=== PATIENT | female | born 1955 | race Caucasian/White ===

== ENCOUNTER 2018-01-23 18:12 | Emergency (ER) | payer MEDICARE ==
[~2018-01-23] VITALS: Ht 162.6 cm; Wt 81.7 kg
[~2018-01-23 18:12] MED LIST: ALBU90OI INH; AMLO5 PO; CEPH500 PO; CLON.1; CLON.1 PO; ERGO50000 PO; FOLI1 PO; GABA100 PO; HYDACE5 PO; IRON; NISO10ER PO; NITR.4TPA TOP; OLME20 PO; OLME20-12. PO; OXYACE5T PO; PENVK500 PO; POTCHL10ER PO; PROM12.5S PR; PROM25S PR; SERT100 PO; SIMV40 PO; SPIHYD; SYMBICORT INHALER; TRAM50 PO
[2018-01-23 18:56] LABS: BASOPHILS ABSOLUTE AUTO 0.01 K/mm3 (0.00-0.23); BASOPHILS PERCENT AUTO 0 % (0-2); EOSINOPHILS ABSOLUTE AUTO 0.06 K/mm3 (0.00-0.68); EOSINOPHILS PERCENT AUTO 1 % (0-6); Hematocrit 34.1 % (33.0-51.0); Hemoglobin 11.4 g/dL (11.5-16.0); IMMATURE GRAN ABSOLUTE AUTO 0.01 K/mm3 (0.00-0.10); IMMATURE GRAN PERCENT AUTO 0 % (0-1); LYMPHOCYTES ABSOLUTE AUTO 2.11 K/mm3 (0.84-5.20); LYMPHOCYTES PERCENT AUTO 37 % (21-46); MONOCYTES ABSOLUTE AUTO 0.35 K/mm3 (0.16-1.47); MONOCYTES PERCENT AUTO 6 % (4-13); Mean Corpuscular HGB 30.6 pg (26.0-34.0); Mean Corpuscular HGB Conc 33.4 g/dL (31.5-36.5); Mean Corpuscular Volume 92 fL (80-100); Mean Platelet Volume 10.6 fL (9.1-12.4); NEUTROPHILS ABSOLUTE AUTO 3.13 K/mm3 (1.96-9.15); NEUTROPHILS PERCENT AUTO 55 % (41-73); Platelet Count 197 K/mm3 (150-400); RDW Coefficient Variation 12.5 % (11.7-14.2); RDW Standard Deviation 41.5 fL (35.1-46.3); Red Blood Cell Count 3.72 M/mm3 (3.80-5.20); White Blood Cell Count 5.67 K/mm3 (4.00-11.30)
[2018-01-23 19:10] LABS: Alanine Aminotransfer (ALT/SGP 18 U/L (12-78); Albumin, Blood 3.6 g/dL (3.4-5.0); Albumin/Globulin Ratio 0.9 (0.8-1.8); Alk Phos 117 U/L (50-136); Anion Gap 6 mmol/L (6-16); Aspartate Aminotrans (AST/SGOT 21 U/L (12-37); Bilirubin, Total 0.2 mg/dL (0.1-1.0); Blood Urea Nitrogen 25 mg/dL (8-24); CO2, Blood 31 mmol/L (21-32); Calcium, Blood 8.7 mg/dL (8.5-10.1); Chloride, Blood 104 mmol/L (98-108); Creatinine, Blood 1.47 mg/dL (0.40-1.00); Globulin, Blood 4.1 g/dL (2.2-4.0); Glomerular Filtration Rate 38 (60-); Glucose, Blood 133 mg/dL (70-99); Potassium, Blood 3.6 mmol/L (3.5-5.5); Sodium, Blood 141 mmol/L (136-145); Total Protein, Blood 7.7 g/dL (6.4-8.2); Troponin I <0.015 ng/mL (0.000-0.040)
== END 2018-01-23 21:14 | disposition home or self-care (01) ==
LOC: ER 18:12
PROVIDERS: Emergency Medicine
DX: R42 Dizziness and giddiness (principal); R53.1 Weakness; I12.9 Hypertensive chronic kidney disease with stage 1 through stage 4 chronic kidney disease, or unspecified chronic kidney disease; N18.9 Chronic kidney disease, unspecified; F32.9 Major depressive disorder, single episode, unspecified; Z88.5 Allergy status to narcotic agent; Z88.6 Allergy status to analgesic agent; Z88.8 Allergy status to other drugs, medicaments and biological substances; Z79.899 Other long term (current) drug therapy
CPT/HCPCS: 36415; 71046; 80053; 83880; 84484; 85025; 93005; 93010; 99284-25

== ENCOUNTER → 2019-08-03 | Outpatient (CLI) | payer MEDICARE | END | disposition home or self-care (01) | LOC: LAB 11:20 → LAB SHORT 11:20 | DX: N18.2 Chronic kidney disease, stage 2 (mild) (principal); D63.1 Anemia in chronic kidney disease; R94.5 Abnormal results of liver function studies | CPT/HCPCS: 86335 ==

== ENCOUNTER 2020-12-01 10:10 | Inpatient (IN) | payer MEDICARE ==
[~2020-12-01] VITALS: Ht 162.6 cm; Wt 86.2 kg
[2020-12-01 10:33] LABS: BASOPHILS ABSOLUTE AUTO 0.03 K/mm3 (0.00-0.23); BASOPHILS PERCENT AUTO 0 % (0-2); EOSINOPHILS ABSOLUTE AUTO 0.11 K/mm3 (0.00-0.68); EOSINOPHILS PERCENT AUTO 1 % (0-6); Hematocrit 32.4 % (33.0-51.0); Hemoglobin 10.6 g/dL (11.5-16.0); IMMATURE GRAN ABSOLUTE AUTO 0.11 K/mm3 (0.00-0.10); IMMATURE GRAN PERCENT AUTO 1 % (0-1); LYMPHOCYTES ABSOLUTE AUTO 1.47 K/mm3 (0.84-5.20); LYMPHOCYTES PERCENT AUTO 17 % (21-46); MONOCYTES ABSOLUTE AUTO 0.43 K/mm3 (0.16-1.47); MONOCYTES PERCENT AUTO 5 % (4-13); Mean Corpuscular HGB 30.3 pg (26.0-34.0); Mean Corpuscular HGB Conc 32.7 g/dL (31.5-36.5); Mean Corpuscular Volume 93 fL (80-100); Mean Platelet Volume 10.1 fL (9.1-12.4); NEUTROPHILS PERCENT AUTO 75 % (41-73); Platelet Count 184 K/mm3 (150-400); RDW Coefficient Variation 13.2 % (11.7-14.2); RDW Standard Deviation 44.9 fL (35.1-46.3); White Blood Cell Count 8.75 K/mm3 (4.00-11.30)
[2020-12-01 10:54] LABS: Alanine Aminotransfer (ALT/SGP 31 U/L (12-78); Albumin, Blood 3.3 g/dL (3.4-5.0); Albumin/Globulin Ratio 0.7 (0.8-1.8); Alk Phos 222 U/L (50-136); Anion Gap 1 mmol/L (6-16); Aspartate Aminotrans (AST/SGOT 49 U/L (12-37); Beta HCG, Quantitative, Serum 1 mIU/mL (0-3); Bilirubin, Total 0.2 mg/dL (0.1-1.0); Blood Urea Nitrogen 50 mg/dL (8-24); Bun/Creatinine Ratio 32.9 (12.0-20.0); CO2, Blood 33 mmol/L (21-32); Chloride, Blood 105 mmol/L (98-108); Creatinine, Blood 1.52 mg/dL (0.40-1.00); Ethanol (Alcohol), Blood, Med <3 mg/dL; Globulin, Blood 4.5 g/dL (2.2-4.0); Glomerular Filtration Rate 36 (60-); Glucose, Blood 127 mg/dL (70-99); Potassium, Blood 4.9 mmol/L (3.5-5.5); Sodium, Blood 139 mmol/L (136-145); Total Protein, Blood 7.8 g/dL (6.4-8.2)
[2020-12-01 11:01] LABS: International Normalized Ratio 0.95; Prothrombin Time Results 10.3 Sec (9.7-11.5)
[2020-12-01 11:16] LABS: Source, Urine Clean Catch
[2020-12-01 11:20] LABS: Appearance, Urine Clear (Clear); Bilirubin, Urine Neg (Neg); Blood, Urine 4+ (Neg); Color, Urine Yellow (P-Yellow); Glucose Qualitative, Urine Neg (Neg); Ketones, Urine Neg (Neg); Leukocyte Esterase, Urine 1+ (Neg); Nitrite, Urine Neg (Neg); Protein, Urine 2+ (Neg); Urobilinogen, Urine NORM (Normal)
[2020-12-01 11:46] LABS: Bacteria Few /hpf; Squamous Epithelial Cells Rare /hpf (Few)
[2020-12-01] MEDS ORDERED: CYCL10 PO (14:35)
[2020-12-01] MEDS ORDERED: FLUT1DIS8 INH (14:36)
[2020-12-01] MEDS ORDERED: OXYC10TA19 PO (14:39)
[2020-12-01 14:50] LABS: U Amphetamine Screen Not Detected; U Barbituate Screen Not Detected; U Benzodiazapine Screen Not Detected; U Buprenorphine Screen Not Detected; U Cannabinoids Screen DETECTED; U Cocaine Screen Not Detected; U Methadone Screen Not Detected; U Methamphetamine Screen Not Detected; U Opiates Screen Not Detected; U Oxycodone Screen DETECTED; U Phencyclidine Screen Not Detected; U Propoxyphene Screen Not Detected
--- NOTE | 2020-12-01 17:41 | NUR ---
Shift Summary Received report from [facility]-RN. Patient arrived to unit via gurney at approx. 1430, slide transfer to bed. AOx4, pleasant and cooperative with care. Medicated for pain per EMAR with some relief. Painful with repositioning and requiring 2p max for comfort and safety. Cast to L arm/wrist. TQ2 as tolerated. Per report received from [facility], Dr. Mack has been notified of the ortho consult. Muniz placed in ER, patent and draining clear yellow urine. Resting comfortably in bed. WCTM.
--- NOTE | 2020-12-02 04:20 | NUR ---
SHIFT SUMMARY ADMITTED FOR MULTIPLE FRACTURES AFTER A FALL FROM A LADDER. FULL CODE. DR VILLARREAL IS ORTHO CONSULT. SHE IS BEDREST FOR NOW. NS INFUSING @ 100 ML/HR. 1 LPM O2 VIA NC, SHE USES 3 1/2 LPM O2 AT NIGHT WHEN SHE IS HOME. DOMÍNGUEZ IN PLACE DUE TO PELVIC FRACTURES. I DID MEDICATE FOR PAIN 2 X'S THIS SHIFT. 2 G LOW NA+ DIET. SHE IS A&O X4.
[2020-12-02 04:47] LABS: BASOPHILS ABSOLUTE AUTO 0.01 K/mm3 (0.00-0.23); BASOPHILS PERCENT AUTO 0 % (0-2); EOSINOPHILS ABSOLUTE AUTO 0.04 K/mm3 (0.00-0.68); EOSINOPHILS PERCENT AUTO 1 % (0-6); Hematocrit 29.5 % (33.0-51.0); Hemoglobin 9.8 g/dL (11.5-16.0); IMMATURE GRAN ABSOLUTE AUTO 0.02 K/mm3 (0.00-0.10); IMMATURE GRAN PERCENT AUTO 0 % (0-1); LYMPHOCYTES PERCENT AUTO 8 % (21-46); MONOCYTES ABSOLUTE AUTO 0.15 K/mm3 (0.16-1.47); MONOCYTES PERCENT AUTO 2 % (4-13); Mean Corpuscular HGB 30.1 pg (26.0-34.0); Mean Corpuscular HGB Conc 33.2 g/dL (31.5-36.5); Mean Corpuscular Volume 91 fL (80-100); Mean Platelet Volume 10.2 fL (9.1-12.4); NEUTROPHILS ABSOLUTE AUTO 5.66 K/mm3 (1.96-9.15); NEUTROPHILS PERCENT AUTO 89 % (41-73); Platelet Count 143 K/mm3 (150-400); RDW Coefficient Variation 13.2 % (11.7-14.2); RDW Standard Deviation 43.3 fL (35.1-46.3); Red Blood Cell Count 3.26 M/mm3 (3.80-5.20); White Blood Cell Count 6.38 K/mm3 (4.00-11.30)
[2020-12-02 05:28] LABS: Albumin, Blood 2.8 g/dL (3.4-5.0); Albumin/Globulin Ratio 0.7 (0.8-1.8); Bilirubin, Total 0.5 mg/dL (0.1-1.0); Bun/Creatinine Ratio 26.4 (12.0-20.0); Calcium, Blood 8.1 mg/dL (8.5-10.1); Creatinine, Blood 1.06 mg/dL (0.40-1.00); Globulin, Blood 4.1 g/dL (2.2-4.0); Magnesium, Blood 1.6 mg/dL (1.6-2.4); Potassium, Blood 3.8 mmol/L (3.5-5.5); Total Protein, Blood 6.9 g/dL (6.4-8.2)
--- NOTE | 2020-12-02 15:39 | NUR ---
PATIENT HAS BEEN ENCOUAGED TO DEEP BREATH AND COUGH. A BED BATH WAS ATTEMPTED BUT THE PATIENT WAS UNABLE TO LOG ROLL TO FINISH THE BEDBATH. REPOSITIONING WITH PILLOWS. SCDS IN PLACE. DR. VILLARREAL WAS CONSULTED YESTERDAY IN THE ER. HE DID NOT COME TO SEE THE PATIENT UNTIL HE WAS CONSULTED AGAIN UP ON 3RD FLOOR. THE PATIENT WAS NOT NPO TODAY AND THEREFORE WAS UNABLE TO HAVE A PRODCEDURE DONE. THE PATIENT HAS NPO ORDERS. DR. VILLARREAL SAID THAT THE APPLIED BIOLOGY PROFESSOR ORTHOPEDIC SURGEON WILL PREFORM THE PROCEDURE TOMMOROW. THE PATIENT C/O BEING HOT AND SWEATY, HER ORAL TEMPERATURE SHOWS 98.7 DEGREES FAHRENHEIT. VSS.
--- NOTE | 2020-12-02 17:13 | NUR ---
PATIENT IS ALERT AND ORIENTED. SHE IS IN 9/10 PAIN, TREATED PER EMAR. PATIENT IS DYSPNEIC, A CHEST X-RAY IS BEING COMPLETED AT THIS TIME. A DOMÍNGUEZ IS IN PLACE. ON 2L O2 VIA NC. NS AT 100/HR. SPLINT IS IN PLACE ON LEFT FOREARM. PATIENT IS BEDREST. PATIENT IS NPO AT THIS TIME IN PREPARATION FOR THE PROCEDURE. HER BP IS 179/91, HYDRALAZINE HAS BEEN ORDERED BY DR. DANG. WILL CONTINUE TO MONITOR
[2020-12-03 04:54] LABS: Hematocrit 27.1 % (33.0-51.0); Hemoglobin 9.2 g/dL (11.5-16.0); Mean Corpuscular HGB 29.9 pg (26.0-34.0); Mean Corpuscular HGB Conc 33.9 g/dL (31.5-36.5); Mean Corpuscular Volume 88 fL (80-100); Mean Platelet Volume 10.8 fL (9.1-12.4); Platelet Count 104 K/mm3 (150-400); RDW Standard Deviation 41.1 fL (35.1-46.3); Red Blood Cell Count 3.08 M/mm3 (3.80-5.20); White Blood Cell Count 6.04 K/mm3 (4.00-11.30)
[2020-12-03 05:27] LABS: Alanine Aminotransfer (ALT/SGP 25 U/L (12-78); Albumin, Blood 2.4 g/dL (3.4-5.0); Albumin/Globulin Ratio 0.6 (0.8-1.8); Alk Phos 101 U/L (50-136); Anion Gap 6 mmol/L (6-16); Aspartate Aminotrans (AST/SGOT 48 U/L (12-37); Bilirubin, Total 0.6 mg/dL (0.1-1.0); Blood Urea Nitrogen 17 mg/dL (8-24); Bun/Creatinine Ratio 21.7 (12.0-20.0); CO2, Blood 27 mmol/L (21-32); Calcium, Blood 8.1 mg/dL (8.5-10.1); Chloride, Blood 99 mmol/L (98-108); Creatinine, Blood 0.78 mg/dL (0.40-1.00); Ferritin, Serum 370 ng/mL (8-252); Globulin, Blood 4.2 g/dL (2.2-4.0); Glomerular Filtration Rate >60 (60-); Glucose, Blood 118 mg/dL (70-99); Iron Serum 17 ug/dL (50-170); Percent Saturation 6.2 % (15.0-50.0); Potassium, Blood 3.4 mmol/L (3.5-5.5); Sodium, Blood 132 mmol/L (136-145); Total Iron Binding Capacity 272 ug/dL (250-450); Total Protein, Blood 6.6 g/dL (6.4-8.2)
--- NOTE | 2020-12-03 05:43 | NUR ---
HELIOTHERAPIST SUMMARY PT AAOX4, PLEASANT AND COOPERATIVE. BEDREST DUE TO PELVIC AND ARM FX'S. DOMÍNGUEZ CATH IN PLACE DUE TO PAIN WITH MOVEMENT. MEDICATING PT WITH DILAUDID 0.5 MG IV X3 TONIGHT. PT REPORTS THAT PAIN LEVEL GOES FROM A 8-9/10 TO A 6/10 WHICH SHE REPORTS IS TOLERABLE FOR HER. PT HAS BEEN ABLE TO SLEEP A GOOD PORTION OF THE NIGHT. PT HAS BEEN NPO IN PREP FOR ORTHO CONSULT WITH POSSIBLE PROCEDURE LATER TODAY. WILL CONTINUE TO MONITOR.
[2020-12-03 14:07] LABS: Stool Occult Blood Guaiac 1 Neg (Neg)
--- NOTE | 2020-12-03 20:51 | NUR ---
PT RETURNED TO ROOM FROM PACU S/P LEFT WRIST AND LEFT HIP REPAIR. PT IS A/O PAIN IS RATING 9/10 MOSTLY IN WRIST. PT IS DRINKING JUICE EATING JELLO. MEDICATED FOR PAIN. DRESSING TO LEFT HIP WITH MOD DRAINAGE, BUT INTACT. LEFT WRIST IN SPLINT. ABLE TO WIGGLE FINGERS AND TOES BUT STATES SOME NUMBESS TO LEFT FINGERS. DOMÍNGUEZ IS DRAINING WELL. IVF INFUSING. VSS AND ON 3L NC, WILL TITRATE NEEDED.
--- NOTE | 2020-12-04 04:34 | NUR ---
SHIFT SUMMARY POD#1 LEFT HIP PINNING. AAOX4. DISCOMFORT DECREASED WITH 0.5MG IV DILAUDID X2 THIS SHIFT. NO NAUSEA/EMESIS. DRESSING TO LEFT HIP QUARTER SIZE RED DRAINAGE NOTED UPON ARRIVAL TO UNIT, NO INCREASE THIS SHIFT. PPP, DENIES N/T ALL EXTREMITIES, MOVES ALL TOES WELL. LUE IN SPLINT C/D/I. PT VERY PAINFUL WITH MINIMAL MOVEMENT. DOMÍNGUEZ SECURE/DRAINING YELLOW URINE. RESTING WELL THIS AM. IVF + POST OP ABX PER ORDERS. PT CURRENTLY RESTING WELL IN BED WITH CALL LIGHT IN REACH.
[2020-12-04 05:26] LABS: Hematocrit 23.8 % (33.0-51.0); Mean Corpuscular HGB Conc 33.6 g/dL (31.5-36.5); Mean Corpuscular Volume 89 fL (80-100); Mean Platelet Volume 10.9 fL (9.1-12.4); Platelet Count 99 K/mm3 (150-400); RDW Standard Deviation 42.5 fL (35.1-46.3); Red Blood Cell Count 2.67 M/mm3 (3.80-5.20); White Blood Cell Count 3.54 K/mm3 (4.00-11.30)
[2020-12-04 05:50] LABS: Anion Gap 4 mmol/L (6-16); Blood Urea Nitrogen 18 mg/dL (8-24); Bun/Creatinine Ratio 25.2 (12.0-20.0); CO2, Blood 30 mmol/L (21-32); Chloride, Blood 102 mmol/L (98-108); Creatinine, Blood 0.72 mg/dL (0.40-1.00); Glomerular Filtration Rate >60 (60-); Glucose, Blood 154 mg/dL (70-99); Potassium, Blood 3.8 mmol/L (3.5-5.5); Sodium, Blood 136 mmol/L (136-145)
--- NOTE | 2020-12-04 10:20 | NUR ---
12/04/20 1020 Brie Prasad VERIFICATION: EDIT CHART.
--- NOTE | 2020-12-04 18:36 | NUR ---
SHIFT SUMMARY PT ALERT AND ORIENTED THROUGHOUT SHIFT. TOLERATING REGULAR DIET AND FLUIDS. LEFT HIP DRESSING CHANGED X2. STOOD AT EDGE OF BED WITH PHYSICAL THERAPY. LEFT ARM SPLINT IN PLACE. MEDICATED FOR PAIN NEEDED. ARM AND HIP ICED. ARM ELEVATED ON PILLOW. WIGGLES FINGERS AND TOES ON LEFT SIDE.
--- NOTE | 2020-12-05 04:39 | NUR ---
SHIFT SUMMARY: COLUMBA IS A&OX4. VSS, NO ACUTE EVENTS OVERNIGHT. SHE REPORTS MINIMAL PAIN RELIEF WITH THE ORAL PAIN MEDICATION D/T TAKING 40 MG OF OXYCODONE AT HOME Q AM. SLING TO GEOFF, DRESSING TO L HIP C/D&I. SCDs IN PLACE. SHE IS TOLERATING PO INTAKE WELL, DOMÍNGUEZ PATENT. SHE IS LYING IN BED WITH THE CALL LIGHT IN REACH. WILL REPORT TO DAY SHIFT RN.
[2020-12-05 05:12] LABS: Hematocrit 24.2 % (33.0-51.0); Hemoglobin 7.8 g/dL (11.5-16.0); Mean Corpuscular HGB 29.5 pg (26.0-34.0); Mean Corpuscular HGB Conc 32.2 g/dL (31.5-36.5); Mean Corpuscular Volume 92 fL (80-100); Mean Platelet Volume 10.7 fL (9.1-12.4); Platelet Count 134 K/mm3 (150-400); RDW Coefficient Variation 13.4 % (11.7-14.2); RDW Standard Deviation 44.8 fL (35.1-46.3); Red Blood Cell Count 2.64 M/mm3 (3.80-5.20); White Blood Cell Count 3.63 K/mm3 (4.00-11.30)
[2020-12-05 05:28] LABS: Anion Gap 3 mmol/L (6-16); Blood Urea Nitrogen 26 mg/dL (8-24); Bun/Creatinine Ratio 28.7 (12.0-20.0); CO2, Blood 31 mmol/L (21-32); Calcium, Blood 8.2 mg/dL (8.5-10.1); Chloride, Blood 104 mmol/L (98-108); Creatinine, Blood 0.91 mg/dL (0.40-1.00); Glomerular Filtration Rate >60 (60-); Glucose, Blood 125 mg/dL (70-99); Potassium, Blood 3.4 mmol/L (3.5-5.5); Sodium, Blood 138 mmol/L (136-145)
--- NOTE | 2020-12-05 06:11 | NUR ---
HEMOGLOBIN 7.8 THIS AM, DOWN FROM 8.0, WAS 10.6 ON ADMISSION. OFFICE CORRESPONDENT PHYSICIAN NOTIFIED, NO NEW ORDERS AT THIS TIME.
--- NOTE | 2020-12-05 15:45 | NUR ---
SHIFT SUMMARY: POD 2 LEFT HIP PINNING PATIENT IS ALERT AND ORIENTED X4. VS ARE WNL AND IS ON 2L NC. SHE WEARS 3L OXYGEN NC DURING THE NIGHT AT BASELINE. PAIN IS MANAGED WITH 2 OXY THIS SHIFT. GAUZE AND TAPE ARE IN PLACE ON THE LEFT HIP AND IS C/D/I. SHE ALSO HAS AN DAVID WRAP SPLINT ON THE LEFT ARM THAT IS C/D/I. SHE IS ABLE TO WIGGLE FINGERS AND TOES. DENIES NUMBNESS OR TINGLING. SHE IS A 2 PERSON ASSIST WITH FWW AND GAIT BELT. PATIENT WAS ABLE TO SIT IN A CHAIR FOR A WHILE. SHE IS TOLERATING PO INTAKE AND IS VOIDING. SHE IS CURRENTLY BACK IN BED WATCHING TV. THE PLAN IS TO CONTINUE TO WORK WITH PT/OT UNTIL THERE IS A BED AVAILABLE AT A SNF.
--- NOTE | 2020-12-05 19:04 | NUR ---
RECEIVED REPORT AND ASSUMED CARE OF PT. SHE IS LYING IN BED WITH HER LEFT LEG AND LEFT ARM ELEVTAED ON PILLOWS, AWAKE, ALERT AND ORIENTED. SHE DENIES ANY NEEDS AT THIS TIME. GUSTAVO.
[2020-12-06 04:43] LABS: Hematocrit 23.9 % (33.0-51.0); Mean Corpuscular HGB 30.5 pg (26.0-34.0); Mean Corpuscular HGB Conc 33.5 g/dL (31.5-36.5); Mean Corpuscular Volume 91 fL (80-100); Mean Platelet Volume 10.3 fL (9.1-12.4); Platelet Count 152 K/mm3 (150-400); RDW Coefficient Variation 13.5 % (11.7-14.2); RDW Standard Deviation 44.7 fL (35.1-46.3); Red Blood Cell Count 2.62 M/mm3 (3.80-5.20); White Blood Cell Count 3.84 K/mm3 (4.00-11.30)
[2020-12-06 05:03] LABS: Anion Gap 2 mmol/L (6-16); Blood Urea Nitrogen 21 mg/dL (8-24); CO2, Blood 32 mmol/L (21-32); Calcium, Blood 8.3 mg/dL (8.5-10.1); Chloride, Blood 104 mmol/L (98-108); Creatinine, Blood 0.78 mg/dL (0.40-1.00); Glomerular Filtration Rate >60 (60-); Glucose, Blood 108 mg/dL (70-99); Potassium, Blood 4.3 mmol/L (3.5-5.5); Sodium, Blood 138 mmol/L (136-145)
--- NOTE | 2020-12-06 05:10 | NUR ---
SHIFT SUMMARY: COLUMBA IS A&OX4. VSS, NO ACUTE EVENTS OVERNIGHT. SHE REPORTS MINIMAL PAIN CONTROL WITH THE OXYCODONE AND IV DILAUDID. SHE IS TOLERATING PO INTAKE WELL, USING THE BEDPAN THIS SHIFT STATING THAT SHE IS "TOO WORN OUT" FROM THERAPY DURING THE DAY TO GET UP TO THE BSC. DRESSING TO LEFT HIP C/D&I, SPLINT AND SLING TO LEFT ARM, AFFECTED EXTREMITIES ELEVATED ON PILLOWS. SHE IS LYING IN BED WITH THE CALL LIGHT IN REACH. WILL REPORT TO DAY SHIFT RN.
--- NOTE | 2020-12-06 17:43 | NUR ---
pt 1 person moderate assist to commode and chair, pt using arm rest walker. splint intact to left didier, pt reports intermittent tingling to left fingers and state it has not changed in intesity throughout shift. movement intact to left hand fingers, fingers pink and warm with less than 3 second capillary refill. left hip dressing dry and intact, pt reports pain 8/10 but reports this is her baseline, patient sleeping intermittently and reports pain is adequately controlled
--- NOTE | 2020-12-07 03:50 | NUR ---
SHIFT SUMMARY PT AOX4. POD4 L HIP PINNING WITH GAUZE AND TAPE ON L HIP SURGICAL SITE, CDI. NO ACUTE CHANGES OVERNIGHT. PAIN REMAINS TO BE 7-8/10 (BASELINE R/T CHRONIC PAIN SYNDROME). PAIN MANAGED WITH DARREL AND TYLENOL.SHE HAS BEEN HYPERTENSIVE, MEDICATED W/ HYDRALAZINE 10MG PO X1. PT USED BEDPAN AT NIGHT STATING THAT SHE FELT WORN OUT WITH THERAPY AND GETTING UP IN THE BSC DURING THE DAY. PT ALSO HAVE SPLINT AND CAST ON LEFT ARM, REMAIN TO HAVE INTERMITTENT TINGLING BUT CAP REFILL WNL AND SENSATION WNL. PT TOLERATING PO INTAKE DENIES NAUSA AND VOMITING. CALL LIGHT WITHIN REACH. WILL PROVIDER REPORT TO ONCOMING NURSE.
--- NOTE | 2020-12-07 18:28 | NUR ---
SHIFT SUMMARY PATIENT ALERT AND ORIENTED THROUGH OUT SHIFT. SBA WITH WALKER AND GAIT BELT TO COMMODE. UP IN CHAIR FOR MOST OF DAY. LEFT HIP WITH GAUZE DRESSING C/D/I. LEFT ARM IN SPLINT AND SLING. WORKED WELL WITH PHYSICAL THERAPY. TOLERATING REGULAR DIET AND FLUIDS. PLAN TO DISCHARGE TO SNF TOMORROW 12/08/20.
[2020-12-07 20:55] LABS: SARS-Cov-2 (COVID-19) PCR, MMC NEGATIVE (NEGATIVE)
--- NOTE | 2020-12-08 05:12 | NUR ---
SHIFT SUMMARY NO ACUTE CHANGES OVERNIGHT. PT SLEPT T/O SHIFT. REPORTS PAIN AND MILD H/A. CONSISTENT WITH 7-8/10 PAIN LEVEL, WHICH IS HER BASELINE. PAIN MANAGED WITH PO MEDS ONLY. PT CONTINUES TO HAVE INTERMITTENT TINGLING ON LEFT ARM, CAP REFILL WNL AND DENIES NUMBNESS. AMBULATES W/ 1 MIN ASSIST. TOLERATING PO INTAKE, DENIES NAUSEA AND VOMITING. IV ON R AC, SALINE LOCKED. AOX4. L HIP WITH GAUZE AND TAPE, CDI. CALL LIGHT WITHIN REACH. WILL PROVIDE REPORT TO ONCOMING NURSE. PATIENT WILL BE DISCHARGE TODAY AT 11AM.
--- NOTE | 2020-12-08 10:55 | NUR ---
DISCHARGE PT LEFT VIA WHEELCHAIR WITH TRANSPORT TO [facility]. REPORT CALLED TO HUMPHREY AT [facility]. ALL BELONGINGS SENT WITH PATIENT. EXTRA DRESSINGS GIVEN TO PATIENT. PT HAS BEEN UP AND VOIDED, TOLERATING PO. 1 LARGE BM THIS MORNING. PAIN MANAGED PER EMAR. PT REPORTS TOLERABLE, HAS SOME CHRONIC PAIN ISSUES. DENIES SOB OR TINGLING. IV REMOVED PRIOR TO DISCHARGE.
== END 2020-12-08 10:58 | DRG 956 ==
LOC: ER 10:10 → MEDS 13:00 → SURS 13:00 → MEDS 14:17 → SURS 12-03 15:40
PROVIDERS: Emergency Medicine; Internal Medicine; Orthopaedic Surgery; ADMIT Internal Medicine
PROC: 0PSJ04Z Reposition Left Radius with Internal Fixation Device, Open Approach (ICD-10-PCS; principal; 2020-12-03 15:30)
PROC: 0QH734Z Insertion of Internal Fixation Device into Left Upper Femur, Percutaneous Approach (ICD-10-PCS; 2020-12-03 15:30)
DX: S72.002A Fracture of unspecified part of neck of left femur, initial encounter for closed fracture (principal); S32.592A Other specified fracture of left pubis, initial encounter for closed fracture; S59.202A Unspecified physeal fracture of lower end of radius, left arm, initial encounter for closed fracture; S32.591A Other specified fracture of right pubis, initial encounter for closed fracture; S32.10XA Unspecified fracture of sacrum, initial encounter for closed fracture; S52.612A Displaced fracture of left ulna styloid process, initial encounter for closed fracture; N17.9 Acute kidney failure, unspecified; E87.1 Hypo-osmolality and hyponatremia; W11.XXXA Fall on and from ladder, initial encounter; M54.9 Dorsalgia, unspecified; E66.9 Obesity, unspecified; I12.9 Hypertensive chronic kidney disease with stage 1 through stage 4 chronic kidney disease, or unspecified chronic kidney disease; E87.6 Hypokalemia; E86.9 Volume depletion, unspecified; Z20.822 Contact with and (suspected) exposure to COVID-19; F32.9 Major depressive disorder, single episode, unspecified; D50.9 Iron deficiency anemia, unspecified; D63.1 Anemia in chronic kidney disease; G89.4 Chronic pain syndrome; N18.30 Chronic kidney disease, stage 3 unspecified; J44.9 Chronic obstructive pulmonary disease, unspecified; E78.5 Hyperlipidemia, unspecified; Y93.H2 Activity, gardening and landscaping; Z88.6 Allergy status to analgesic agent; Y92.73 Farm field as the place of occurrence of the external cause; Z88.5 Allergy status to narcotic agent; Z88.8 Allergy status to other drugs, medicaments and biological substances; Z90.49 Acquired absence of other specified parts of digestive tract; Z90.710 Acquired absence of both cervix and uterus; Z90.722 Acquired absence of ovaries, bilateral; Z79.899 Other long term (current) drug therapy; Z68.32 Body mass index [BMI] 32.0-32.9, adult
CPT/HCPCS: 25605; 36415; 51702; 70450; 71045; 71260; 72125; 72170; 73100; 73110; 74177; 80048; 80053; 81001; 82270; 82728; 83540; 83550; 83690; 83735; 84702; 85025; 85027; 85610; 87086; 93005; 93010; 94640; 94664; 94760; 96374-59; 97110; 97162; 97166; 97530; 97535; 99285-25; A9270; C1713; C1769; G0480; J0171; J0690; J1170; J1644; J1885; J2405; J2704; J2765; J2916; J3010; J3480; J7030; J7120; Q9967; U0004

== ENCOUNTER 2020-12-12 20:49 | Inpatient (IN) | payer MEDICARE ==
[~2020-12-12] VITALS: Ht 162.6 cm; Wt 92.4 kg
[~2020-12-12 20:49] MED LIST changes: +CYCL10 PO; +FLUT1DIS8 INH; +OXYC10TA19 PO
[2020-12-12 21:23] LABS: BASOPHILS ABSOLUTE AUTO 0.02 K/mm3 (0.00-0.23); BASOPHILS PERCENT AUTO 0 % (0-2); EOSINOPHILS ABSOLUTE AUTO 0.03 K/mm3 (0.00-0.68); EOSINOPHILS PERCENT AUTO 0 % (0-6); Hematocrit 27.5 % (33.0-51.0); Hemoglobin 9.1 g/dL (11.5-16.0); IMMATURE GRAN ABSOLUTE AUTO 0.09 K/mm3 (0.00-0.10); IMMATURE GRAN PERCENT AUTO 1 % (0-1); LYMPHOCYTES ABSOLUTE AUTO 0.83 K/mm3 (0.84-5.20); LYMPHOCYTES PERCENT AUTO 10 % (21-46); MONOCYTES ABSOLUTE AUTO 0.47 K/mm3 (0.16-1.47); MONOCYTES PERCENT AUTO 6 % (4-13); Mean Corpuscular HGB 30.5 pg (26.0-34.0); Mean Corpuscular HGB Conc 33.1 g/dL (31.5-36.5); Mean Corpuscular Volume 92 fL (80-100); Mean Platelet Volume 9.1 fL (9.1-12.4); NEUTROPHILS ABSOLUTE AUTO 6.65 K/mm3 (1.96-9.15); NEUTROPHILS PERCENT AUTO 82 % (41-73); Platelet Count 277 K/mm3 (150-400); RDW Coefficient Variation 14.3 % (11.7-14.2); RDW Standard Deviation 47.3 fL (35.1-46.3); Red Blood Cell Count 2.98 M/mm3 (3.80-5.20); White Blood Cell Count 8.09 K/mm3 (4.00-11.30)
[2020-12-12 21:45] LABS: Alanine Aminotransfer (ALT/SGP 20 U/L (12-78); Albumin, Blood 2.8 g/dL (3.4-5.0); Albumin/Globulin Ratio 0.6 (0.8-1.8); Alk Phos 227 U/L (50-136); Anion Gap 5 mmol/L (6-16); Aspartate Aminotrans (AST/SGOT 16 U/L (12-37); Bilirubin, Total 0.3 mg/dL (0.1-1.0); Blood Urea Nitrogen 21 mg/dL (8-24); Bun/Creatinine Ratio 29.5 (12.0-20.0); CO2, Blood 28 mmol/L (21-32); Calcium, Blood 8.5 mg/dL (8.5-10.1); Chloride, Blood 101 mmol/L (98-108); Creatinine, Blood 0.71 mg/dL (0.40-1.00); Globulin, Blood 4.5 g/dL (2.2-4.0); Glomerular Filtration Rate >60 (60-); Glucose, Blood 137 mg/dL (70-99); Potassium, Blood 4.4 mmol/L (3.5-5.5); Sodium, Blood 134 mmol/L (136-145); Total Protein, Blood 7.3 g/dL (6.4-8.2)
[2020-12-12 22:28] LABS: Source, Urine Clean Catch
[2020-12-12 22:30] LABS: Bilirubin, Urine Neg (Neg); Blood, Urine Neg (Neg); Glucose Qualitative, Urine Neg (Neg); Ketones, Urine Neg (Neg); Leukocyte Esterase, Urine Neg (Neg); Nitrite, Urine Neg (Neg); Protein, Urine 1+ (Neg); Urobilinogen, Urine NORM (Normal)
[2020-12-12 22:36] LABS: Appearance, Urine Clear (Clear); Color, Urine Yellow (P-Yellow)
[2020-12-13 01:56] LABS: Influenza A Negative (NEGATIVE); Influenza B Negative (NEGATIVE)
[2020-12-13 02:18] LABS: SARS-Cov-2 (COVID-19) PCR, MMC NEGATIVE (NEGATIVE)
[2020-12-13 06:32] LABS: BASOPHILS ABSOLUTE AUTO 0.02 K/mm3 (0.00-0.23); BASOPHILS PERCENT AUTO 0 % (0-2); EOSINOPHILS PERCENT AUTO 0 % (0-6); Hematocrit 27.3 % (33.0-51.0); Hemoglobin 9.2 g/dL (11.5-16.0); IMMATURE GRAN ABSOLUTE AUTO 0.09 K/mm3 (0.00-0.10); IMMATURE GRAN PERCENT AUTO 1 % (0-1); LYMPHOCYTES ABSOLUTE AUTO 0.79 K/mm3 (0.84-5.20); LYMPHOCYTES PERCENT AUTO 8 % (21-46); MONOCYTES ABSOLUTE AUTO 0.55 K/mm3 (0.16-1.47); MONOCYTES PERCENT AUTO 5 % (4-13); Mean Corpuscular HGB 30.6 pg (26.0-34.0); Mean Corpuscular HGB Conc 33.7 g/dL (31.5-36.5); Mean Corpuscular Volume 91 fL (80-100); Mean Platelet Volume 9.5 fL (9.1-12.4); NEUTROPHILS ABSOLUTE AUTO 8.81 K/mm3 (1.96-9.15); NEUTROPHILS PERCENT AUTO 86 % (41-73); NRBC ABSOLUTE 0.02 K/mm3 (0.00-0.02); NRBC Auto 0.2 /100 WBC (0.0-0.2); Platelet Count 271 K/mm3 (150-400); RDW Coefficient Variation 14.5 % (11.7-14.2); Red Blood Cell Count 3.01 M/mm3 (3.80-5.20); White Blood Cell Count 10.26 K/mm3 (4.00-11.30)
[2020-12-13] MEDS ORDERED: Incruse Ellipta 62.5 INH (11:54)
[2020-12-13] MEDS ORDERED: CYCLOBENZAPRINE5 MG PO (11:54)
[2020-12-13] MEDS ORDERED: OLMESARTAN-HCT1 EAC5 PO (11:54)
[2020-12-13] MEDS ORDERED: AMLODIPINE BESYL5 MG PO (11:55)
[2020-12-13] MEDS ORDERED: ZOLOFT100 M1 PO (11:56)
[2020-12-13] MEDS ORDERED: NEURONTIN300 MG PO (11:56)
[2020-12-13] MEDS ORDERED: CATAPRES0.1 MG PO (11:56)
[2020-12-13] MEDS ORDERED: Simvastatin20 MG PO (11:57)
--- NOTE | 2020-12-13 17:19 | NUR ---
SUMMARY PT ADMITTED FROM THE ER FOR FEVER, PT IS ALERT AND ORIENTED, NEEDED ASSISTANCE TO SLIDE FROM THE GURNEY TO THE BED, PT ABLE TO TURN WITH MIN ASSISTANCE TO USE THE BED MCGUIRE, OFFERED BEDSIDE COMMODE AND PT DECLINED, L ARM IS WRAPPED UP IN DAVID WRAP DUE TO PRIOR FRACTURE, L HIP HAS A SMALL SCABBED AREA FROM PRIOR HIP FX, R ARM IS SWOLLEN AND RED, PT DENIES PAIN AT THIS TIME, IS ABLE TO TAKE PILLS WHOLE WITH WATER, PT MED PER EMAR FOR FEVER, VSS, WILL CONT TO MONITOR
--- NOTE | 2020-12-14 06:07 | NUR ---
SHIFT SUMMARY PT IS A 65 Y/O FEMALE, ADMITTED FOR FEVER. SHE IS A&O X 4, 2PA OUT OF BED. PT HAS A L ARM AND HIP FX FROM A PREVIOUS FALL, AND RUE SWELLING. SHE WAS MEDICATED FOR PAIN WITH PRN OXYCODONE THIS AM. NO C/O NAUSEA OR SOB. PT TEMP WAS ELEVATED AT 99.3. VITAL SIGNS OTHERWISE STABLE. PT RECEIVING NS @ 100 ML/HR. NO ACUTE CHANGES IN PT CONDITION NOTED DURING THE NIGHT. WILL CONTINUE TO MONITOR AND TREAT PER EMAR UNTIL HAND OFF TO DAY SHIFT RN.
--- NOTE | 2020-12-14 16:52 | NUR ---
Echocardiogram completed.
--- NOTE | 2020-12-14 17:33 | NUR ---
SHIFT SUMMARY PT AXO, PLEASANT AND COOPERATIVE WITH CARE. VSS, AFEBRILE THIS SHIFT. PT MEDICATED FOR PAIN PER EMAR. HEATING PAD ON R. ARM PER DR DIANA. PHYSICAL THERAPY WORKED WITH PATIENT THIS SHIFT, SEE NOTE. GRADY BENJAMIN. BED IN LOW POSITION, CALL LIGHT WITHIN REACH. L ARM IN DRESSING, PT STATES THAT HER MARLEN NEED TO BE REMOVED ON THURSDAY. NO OTHER CHANGES THIS SHIFT.
[2020-12-15 01:27] LABS: BASOPHILS ABSOLUTE AUTO 0.01 K/mm3 (0.00-0.23); BASOPHILS PERCENT AUTO 0 % (0-2); EOSINOPHILS ABSOLUTE AUTO 0.03 K/mm3 (0.00-0.68); EOSINOPHILS PERCENT AUTO 1 % (0-6); Hematocrit 25.2 % (33.0-51.0); Hemoglobin 8.2 g/dL (11.5-16.0); IMMATURE GRAN ABSOLUTE AUTO 0.03 K/mm3 (0.00-0.10); IMMATURE GRAN PERCENT AUTO 1 % (0-1); LYMPHOCYTES ABSOLUTE AUTO 0.67 K/mm3 (0.84-5.20); LYMPHOCYTES PERCENT AUTO 18 % (21-46); MONOCYTES ABSOLUTE AUTO 0.21 K/mm3 (0.16-1.47); MONOCYTES PERCENT AUTO 6 % (4-13); Mean Corpuscular HGB 29.7 pg (26.0-34.0); Mean Corpuscular HGB Conc 32.5 g/dL (31.5-36.5); Mean Corpuscular Volume 91 fL (80-100); Mean Platelet Volume 9.9 fL (9.1-12.4); NEUTROPHILS ABSOLUTE AUTO 2.77 K/mm3 (1.96-9.15); NEUTROPHILS PERCENT AUTO 75 % (41-73); Platelet Count 201 K/mm3 (150-400); RDW Coefficient Variation 14.3 % (11.7-14.2); RDW Standard Deviation 47.5 fL (35.1-46.3); Red Blood Cell Count 2.76 M/mm3 (3.80-5.20); White Blood Cell Count 3.72 K/mm3 (4.00-11.30)
[2020-12-15 01:29] LABS: Anion Gap 3 mmol/L (6-16); Blood Urea Nitrogen 16 mg/dL (8-24); Bun/Creatinine Ratio 22.6 (12.0-20.0); CO2, Blood 30 mmol/L (21-32); Calcium, Blood 8.3 mg/dL (8.5-10.1); Chloride, Blood 100 mmol/L (98-108); Creatinine, Blood 0.71 mg/dL (0.40-1.00); Glomerular Filtration Rate >60 (60-); Glucose, Blood 109 mg/dL (70-99); Potassium, Blood 3.7 mmol/L (3.5-5.5); Sodium, Blood 133 mmol/L (136-145)
--- NOTE | 2020-12-15 04:14 | NUR ---
SHIFT SUMMARY ADMITTED FOR FEVER. FULL CODE. SHE WAS IN [facility] FOLLOWING A FALL FROM A LADDER, MULTIPLE FX'S AND RESULTING SURGERIES. SHE HAS CELLULITIS ON RIGHT FOREARM. IV VANCO IS SCHEDULED. PLAN IS FOR PLACEMENT WHEN STABLE. SHE IS ON XARELTO. BLOOD CULTURES WERE POSITIVE. AWAITING NEW BLOOD CULTURES. 2-3 LPM O2 @ HS. NO FEVER THIS SHIFT. NS INFUSING @ 100 ML/HR.
--- NOTE | 2020-12-15 19:10 | NUR ---
ASSUMED CARE RECEIVED REPORT FROM PRINCESS MILLER. PT RESTING IN CHAIR, IN NAD. NO ACUTE NEEDS ASSESSED AT THIS TIME. CALL LIGHT, POSSESSIONS IN REACH.
--- NOTE | 2020-12-16 05:01 | NUR ---
ELEMENTARY SUMMER SCHOOL TEACHER SUMMARY PT RESTING, IN NAD. HAS BEEN SLEEPING ON AND OFF T/O NIGHT. NO ACUTE CHANGES TO REPORT, LT ARM REMAINS IN CAST, SENSATION AND PULSES INTACT, GOOD CAP REFILL. PAIN AND MUSCLE SPASMS WELL MANAGED WITH MEDICATIONS ORDERED. RUE RED, WARM AND TENDER TO PALPATION, SITE MARKED TO MONITOR PROGRESSION OF SWELLING, PT ENCOURAGED TO ELEVATE ON PILLOWS, APPLY ICE TOLERATED; NO FURTHER PROGRESSION NOTED AT THIS TIME. PT DENIES NEEDS AT THIS TIME. CALL LIGHT, POSSESSIONS IN REACH, BED IN LOW AND LOCKED POSITION WITH ALARMS ON. NS INFUSING ORDERED. WILL CONTINUE TO PROVIDE CARE NEEDED UNTIL REPORT GIVEN TO ONCOMING RN.
--- NOTE | 2020-12-16 19:10 | NUR ---
ASSUMED CARE RECEIVED REPORT FROM PRINCESS HAILE. PT RESTING, IN NAD. NO ACUTE NEEDS ASSESSED AT THIS TIME. CALL LIGHT, POSSESSIONS IN REACH. BED ALARMS ON.
--- NOTE | 2020-12-16 19:29 | NUR ---
SHIFT SUMMARY: NO ACUTE EVENTS. PAIN WELL MANAGED ON CURRENT REGIMEN. WEARS O2 @ 2 L/MIN NC AT HS. WAS UP IN CHAIR FROM [id number], LONGER THAN YESTERDAY PER PT. IS DOING HER PHYSICAL THERAPY EXERCISES. GOOD APPETITE. INCONTINENT OF URINE, ATTENDS IN PLACE. WOULD PREFER TO GO HOME RATHER THAN BACK TO SNF AT D/C.
--- NOTE | 2020-12-17 05:49 | NUR ---
FUEL CELL DESIGNER SUMMARY PT RESTING, IN NAD. NO ACUTE EVENTS TO REPORT OVERNIGHT, PT REPORTS SHE SLEPT BETTER THAN THE PREVIOUS NIGHT. EDEMA TO RUE UNCHANGED, PT DENIES PAIN/DISCOMFORT TO SITE. LUE IN CAST, RADIAL PULSE PRESENT, SENSATION INTACT, CAP REFILL <3 SECONDS. VS REVIEWED, 02 SATS WNL ON RA, ALTHOUGH PT USUALLY WEARS 2-3L/NC WHEN ASLEEP. PAIN WELL MANAGED WITH MEDS ORDERED, DENIES PAIN AT THIS TIME. NO ACUTE NEEDS ASSESSED. CALL LIGHT, POSSESSIONS IN REACH, BED IN LOW AND LOCKED POSITION WITH ALARMS ON. WILL REPORT OFF TO ONCOMING RN.
--- NOTE | 2020-12-17 10:17 | NUR ---
ORTHO FOLLOW UP SCHEDULED FOR 12/19/2020 @1000 WITH FRANKLYN ([place]). SCHEDULED WITH XENIA. MARK DID PROCEDURE BUT IS OUT OF OFFICE AT THIS TIME.
--- NOTE | 2020-12-18 03:22 | NUR ---
AN EMPLOYEE SPONSOR OR ADVOCATE AND SUMMARY HAS BEEN RESTING WITH FEW INTERRUPTIONS SINCE HS WITH IV ANTIBIOTICS INFUSING ORDERED, WELL ANALGESICS, SEE MAR FOR DETAILS. RIGHT ARM ELEVATED WITH HEAT PAD. DISCUSSED WHAT IV NEEDLES AND SET UPS WITH NURSE. ALERT AND ORIENTED. SOFT CAST INTACT OF LEFT ARM. CALL LIGHT IN REACH. WILL CONTINUE TO MONITOR
[2020-12-18 05:07] LABS: BASOPHILS ABSOLUTE AUTO 0.02 K/mm3 (0.00-0.23); BASOPHILS PERCENT AUTO 0 % (0-2); EOSINOPHILS ABSOLUTE AUTO 0.13 K/mm3 (0.00-0.68); EOSINOPHILS PERCENT AUTO 3 % (0-6); Hematocrit 24.1 % (33.0-51.0); Hemoglobin 7.7 g/dL (11.5-16.0); IMMATURE GRAN ABSOLUTE AUTO 0.04 K/mm3 (0.00-0.10); IMMATURE GRAN PERCENT AUTO 1 % (0-1); LYMPHOCYTES ABSOLUTE AUTO 1.68 K/mm3 (0.84-5.20); LYMPHOCYTES PERCENT AUTO 33 % (21-46); MONOCYTES ABSOLUTE AUTO 0.41 K/mm3 (0.16-1.47); MONOCYTES PERCENT AUTO 8 % (4-13); Mean Corpuscular HGB 29.7 pg (26.0-34.0); Mean Corpuscular Volume 93 fL (80-100); Mean Platelet Volume 9.6 fL (9.1-12.4); NEUTROPHILS ABSOLUTE AUTO 2.86 K/mm3 (1.96-9.15); NEUTROPHILS PERCENT AUTO 56 % (41-73); Platelet Count 246 K/mm3 (150-400); RDW Coefficient Variation 14.4 % (11.7-14.2); RDW Standard Deviation 49.7 fL (35.1-46.3); Red Blood Cell Count 2.59 M/mm3 (3.80-5.20); White Blood Cell Count 5.14 K/mm3 (4.00-11.30)
[2020-12-18 05:37] LABS: Anion Gap 4 mmol/L (6-16); Blood Urea Nitrogen 13 mg/dL (8-24); Bun/Creatinine Ratio 20.7 (12.0-20.0); CO2, Blood 32 mmol/L (21-32); Calcium, Blood 8.9 mg/dL (8.5-10.1); Chloride, Blood 101 mmol/L (98-108); Creatinine, Blood 0.63 mg/dL (0.40-1.00); Ferritin, Serum 567 ng/mL (8-252); Glomerular Filtration Rate >60 (60-); Glucose, Blood 100 mg/dL (70-99); Iron Serum 45 ug/dL (50-170); Percent Saturation 18.4 % (15.0-50.0); Potassium, Blood 4.1 mmol/L (3.5-5.5); Sodium, Blood 137 mmol/L (136-145); Total Iron Binding Capacity 244 ug/dL (250-450)
[2020-12-18] MEDS ORDERED: ANORO ELLIPTA1 EACH INH (15:18)
[2020-12-18] MEDS ORDERED: CEPH500 PO (15:19)
--- NOTE | 2020-12-18 19:03 | NUR ---
SHIFT SUMMARY- PT IS A/O, PLESANT AND COOPERATIVE. SHE IS EATING AND DRINKING WELL. SHE WILL GO FOR SURGERY TOMORROW, NPO AFTER MIDNIGHT. SHE WORKED WITH PT THIS AFTERNOON AND TOLERATED WELL. SHE WAS UP TO THE CHAIR FOR MEALS. SHE TOOK A SHOWER THIS AFTERNOON. SHE IS INC. AND VOIDING FREQUENTLY. SHE IS IN THE CHAIR AND HER CALL LIGHT IS WITHIN REACH.
--- NOTE | 2020-12-18 20:01 | NUR ---
AWAKE SITTING IN CHAIR AT BEDSIDE. VOICED SHE WAS READY TO LEAVE, BUT ALMOST AT THE LAST MINUTE, MD DECIDED TO OSCHEDULE HER FOR SURGERY FOR TOMORROW. WILL BE NPO AT 2400 FOR AM PROCEDURE. CALL LIGHT IN REACH
--- NOTE | 2020-12-19 00:26 | NUR ---
NPO FOR PROCEDURE SCHEDULED IN THE AM. PT AWARE. IV ANTIBIOTIC INFUSING. CALL LIGHT IN REACH
--- NOTE | 2020-12-19 03:52 | NUR ---
LBD TEACHER SUMMARY HAS BEEN RESTING QUIETLY WITH FEW INTERRUPTIONS SINCE HS. HAS BEEN NPO SINCE 0000 FOR PROCEDURE SCHEDULED LATER TODAY. CALL LIGHT IN REACH
--- NOTE | 2020-12-19 14:05 | NUR ---
PT STATES THAT HER NURSE WAS GOING TO CHANGE HER DEPENDS BEFORE SURGERY BUT PT STATED THAT NURSE DID NOT GET AROUND TO IT AND TOLD HER THEY WOULD CHANGE HER AGTER SURGERY. PT DEPENDS SO WET THEY WERE LAEAKING. PERICARE AND DEPENDS CHANGED PT PLACED ON HOVER ADEEL FOR OR PROCEDURE. RYAN IN OR GIVEN REPORT
--- NOTE | 2020-12-19 15:12 | NUR ---
12/19/20 1512 Eamon Lama PATIENT ON SCHEDULED ANTIBIOTICS
--- NOTE | 2020-12-19 18:15 | NUR ---
SHIFT SUMMARY PT ON SURGICAL UNIT FOR MOST OF THE DAY. PT RETURNED @ APPROX 1730 TO HER ROOM. A&O @ TIME OF RETURN, VSS, ABLE TO SWALLOW BUT DOES C/O SORE THROAT. POSITIVE SENSATION OF RUE AND CAP REFILL WNL. DRESSING C/D/I. NO FOREIGN BODY FOUND DURING PROCEDURE. WILL CONTINUE TO MONITOR VSS AND PT PER POST-OP PROTOCOL. PT STILL REPORTS PAIN LOCATED AT THE L ARM AND HIP FROM RECENT FALL PRIOR TO ADMISSION. PT CURRENTLY RESTING IN BED c CALL LIGHT WITHIN REACH. CALLS APPROPRIATELY.
--- NOTE | 2020-12-20 05:42 | NUR ---
SHIFT SUMMARY PATIENT ALERT AND ORIENTED. HAD NO COMPLAINTS OF PAIN OR SHORTNESS OF BREATH. SLEPT WELL OVERNIGHT. NO ACUTE ISSUES NOTED. IV PATENT AND INFUSING. BED IN LOWEST POSITION WITH WHEELS LOCKED AND ALARM ON. CALL LIGHT WITHIN REACH. REPORT GIVEN TO ONCOMING RN.
--- NOTE | 2020-12-20 16:09 | NUR ---
DISCHARGE SUMMARY PT DISCHARGED @ APPROX 1610 VIA WHEELCHAIR. DISCHARGE INSTRUCTIONS REVIEWED c PT AND WHO WAS AT BEDSIDE. HARD SCRIPT PROVIDED TO PT AND NEEDED RX FAXED TO PREFERRED PHARMACY. PT STATED SHE HAD ALL OF HER BELONGINGS. MADE PT A FOLLOW UP APPOINTMENT c ORTHO SINCE SHE MISSED HER PREVIOUS WHILE BEING ADMITTED. IV REMOVED AND SITE APPEARED WNL.
== END 2020-12-20 16:06 | disposition home health service (06) | DRG 253 ==
LOC: ER 20:49 → ERHOLD 20:50 → MEDS 12-13 12:36 → ENPENDDIS 12-18 16:07 → MEDS 12-20 16:06
PROVIDERS: Emergency Medicine; Family Medicine; Internal Medicine; Surgery; ADMIT Internal Medicine
PROC: 05JY0ZZ Inspection of Upper Vein, Open Approach (ICD-10-PCS; principal; 2020-12-19 10:45)
DX: T82.898A Other specified complication of vascular prosthetic devices, implants and grafts, initial encounter (principal); R78.81 Bacteremia; T82.7XXA Infection and inflammatory reaction due to other cardiac and vascular devices, implants and grafts, initial encounter; I12.9 Hypertensive chronic kidney disease with stage 1 through stage 4 chronic kidney disease, or unspecified chronic kidney disease; Z20.822 Contact with and (suspected) exposure to COVID-19; R50.9 Fever, unspecified; I16.0 Hypertensive urgency; B95.61 Methicillin susceptible Staphylococcus aureus infection as the cause of diseases classified elsewhere; E66.9 Obesity, unspecified; Z68.34 Body mass index [BMI] 34.0-34.9, adult; S72.002D Fracture of unspecified part of neck of left femur, subsequent encounter for closed fracture with routine healing; S62.102D Fracture of unspecified carpal bone, left wrist, subsequent encounter for fracture with routine healing; N18.9 Chronic kidney disease, unspecified; D63.1 Anemia in chronic kidney disease; F32.9 Major depressive disorder, single episode, unspecified; Z79.899 Other long term (current) drug therapy; Z88.6 Allergy status to analgesic agent; Z88.5 Allergy status to narcotic agent; Z88.8 Allergy status to other drugs, medicaments and biological substances; Z90.710 Acquired absence of both cervix and uterus; Z90.49 Acquired absence of other specified parts of digestive tract; Z98.890 Other specified postprocedural states; Z87.891 Personal history of nicotine dependence; Y71.2 Prosthetic and other implants, materials and accessory cardiovascular devices associated with adverse incidents
CPT/HCPCS: 36415; 71045; 73200; 73701; 76882; 80048; 80053; 80202; 82550; 82728; 83540; 83550; 83605; 85025; 87040; 87077; 87147; 87186; 87804; 88305; 93306; 93971; 94640; 94664; 94760; 96365-59; 96372; 96375; 96376; 97110; 97116; 97162; 97530; 99285-25; A9270; G0378; J0360; J0690; J0696; J1100; J1650; J2405; J2704; J3010; J3370; J7030; J7050; J7120; Q9967; U0004

== ENCOUNTER 2021-10-28 12:06 | Emergency (ER) | payer MEDICARE ==
[~2021-10-28] VITALS: Ht 165.1 cm; Wt 86.2 kg
[~2021-10-28 12:06] MED LIST changes: +AMLODIPINE BESYL5 MG PO; +ANORO ELLIPTA1 EACH INH; +CATAPRES0.1 MG PO; +CYCLOBENZAPRINE5 MG PO; +Incruse Ellipta 62.5 INH; +NEURONTIN300 MG PO; +OLMESARTAN-HCT1 EAC5 PO; +Simvastatin20 MG PO; +ZOLOFT100 M1 PO
[2021-10-28 15:14] LABS: BASOPHILS ABSOLUTE AUTO 0.01 K/mm3 (0.00-0.23); BASOPHILS PERCENT AUTO 0 % (0-2); EOSINOPHILS ABSOLUTE AUTO 0.03 K/mm3 (0.00-0.68); EOSINOPHILS PERCENT AUTO 0 % (0-6); Hematocrit 35.5 % (33.0-51.0); Hemoglobin 11.9 g/dL (11.5-16.0); IMMATURE GRAN ABSOLUTE AUTO 0.01 K/mm3 (0.00-0.10); IMMATURE GRAN PERCENT AUTO 0 % (0-1); LYMPHOCYTES PERCENT AUTO 22 % (21-46); MONOCYTES ABSOLUTE AUTO 0.44 K/mm3 (0.16-1.47); MONOCYTES PERCENT AUTO 6 % (4-13); Mean Corpuscular HGB 29.9 pg (26.0-34.0); Mean Corpuscular HGB Conc 33.5 g/dL (31.5-36.5); Mean Corpuscular Volume 89 fL (80-100); NEUTROPHILS PERCENT AUTO 72 % (41-73); Platelet Count 209 K/mm3 (150-400); RDW Coefficient Variation 12.7 % (11.7-14.2); RDW Standard Deviation 41.9 fL (35.1-46.3); Red Blood Cell Count 3.98 M/mm3 (3.80-5.20); White Blood Cell Count 6.99 K/mm3 (4.00-11.30)
[2021-10-28 15:25] LABS: Albumin, Blood 3.4 g/dL (3.4-5.0); Albumin/Globulin Ratio 0.8 (0.8-1.8); Bilirubin, Total 0.2 mg/dL (0.1-1.0); Bun/Creatinine Ratio 25.2 (12.0-20.0); Calcium, Blood 9.3 mg/dL (8.5-10.1); Creatinine, Blood 0.8 mg/dL (0.40-1.00); Globulin, Blood 4.3 g/dL (2.2-4.0); Potassium, Blood 3.8 mmol/L (3.5-5.5); Total Protein, Blood 7.7 g/dL (6.4-8.2)
[2021-10-28] MEDS ORDERED: DOXY100 PO (15:42)
== END 2021-10-28 15:57 | disposition home or self-care (01) ==
LOC: ER 12:06
PROVIDERS: Physician Assistant
DX: L03.211 Cellulitis of face (principal); M27.2 Inflammatory conditions of jaws; I12.9 Hypertensive chronic kidney disease with stage 1 through stage 4 chronic kidney disease, or unspecified chronic kidney disease; N18.9 Chronic kidney disease, unspecified; Z88.8 Allergy status to other drugs, medicaments and biological substances; Z79.899 Other long term (current) drug therapy
CPT/HCPCS: 70487; 80053; 85025; 99284-25; A9270; Q9967

== ENCOUNTER 2023-12-21 17:52 | Emergency (ER) | payer MEDICARE ==
[~2023-12-21] VITALS: Ht 162.6 cm; Wt 88.5 kg
[~2023-12-21 17:52] MED LIST changes: +Benicar Hct 201 EACH PO; +DOXY100 PO
[2023-12-21] MEDS ORDERED: Ketorolac Tromethamine 15mg Vial IV ONE (18:10)
[2023-12-21] MEDS ORDERED: Ondansetron HCl 2 MG / ML 2ML Vial IV ONE (18:10)
[2023-12-21] MEDS ORDERED: RX Prepack 2 Tabs Ondansetron ODT 4MG UD ONE (19:20)
[2023-12-21] MEDS ORDERED: ONDA4 PO (19:27)
[2023-12-21] MEDS ORDERED: Acetaminophen 500 MG Tab PO ONE (19:30)
[2023-12-21 20:22] VITALS: BP 019/76
== END 2023-12-21 20:19 | disposition home or self-care (01) ==
LOC: ER 17:52
DX: U07.1 COVID-19 (principal); Z79.899 Other long term (current) drug therapy; Z88.5 Allergy status to narcotic agent; Z88.8 Allergy status to other drugs, medicaments and biological substances
CPT/HCPCS: 96374; 96375; 99283-25; A9270; J1885; J2405

== ENCOUNTER 2025-04-12 08:05 | Day surgery (SDC) | payer MEDICARE ==
[~2025-04-12] VITALS: Ht 157.5 cm; Wt 82.8 kg
[~2025-04-12 08:05] MED LIST changes: +BREZTRI AEROS10.7 GM INH; +DALIRESP500 MCG PO; +GEMTESA75 MG PO; +ONDA4 PO; +ZOCOR20 MG PO
[2025-04-12 09:37] VITALS: BP 174/94
[2025-04-12] MEDS ORDERED: Ondansetron HCl 2 MG / ML 2ML Vial IV ONE (09:50)
--- NOTE | 2025-04-12 10:08 | NUR ---
04/12/25 Delmar8 Alva Juan ENDO 2 @ 1005-CONFIRMED AND REVIEWED H&P, MEDCICATIONS, ALLERGIES, MEDICAL HISTORY, RESPIRATORY HISTORY, VITAL SIGNS, 3-LEAD EKG, CONSENTS, AND PHYSICIAN ORDERS. PATIENT CONFIRMS NPO STATUS AND AGREES WITH SCHEDULED PROCEDURE. MONITOR INTACT WITH CONTINUOUS PULSE OXIMETRY, CAPNOGRAPHY, 3-LEAD EKG, INTERMITTENT BP. SUPPLEMENTAL O2 TO BE TITRATED THROUGHOUT PROCEDURE TO MAINTAIN O2 SATURATION ABOVE 90%. PATIENT DETERMINED TO BE ASA APPROPRIATE FOR MAC.BRENDA OLIVER PROVIDING ANESTHESIA. SEE ANESTHESIA RECORD.
[2025-04-12 10:35] VITALS: BP 159/88
--- NOTE | 2025-04-12 10:49 | NUR ---
Patient up to Ambulate independently. Gait steady. Discharge instructions reviewed with patient. Patient verbalizes understanding. Copy given to patient to take home. Discharged via wheelchair to private car for ride home WITH
== END 2025-04-12 10:51 | disposition home or self-care (01) ==
LOC: ORSCMMR 08:05 → ORD 09:30 → ORSCMMR 09:30
PROVIDERS: Internal Medicine Gastroenterology
PROC: 0DBN8ZX Excision of Sigmoid Colon, Via Natural or Artificial Opening Endoscopic, Diagnostic (ICD-10-PCS; principal; 2025-04-12 09:30)
PROC: 0DBM8ZX Excision of Descending Colon, Via Natural or Artificial Opening Endoscopic, Diagnostic (ICD-10-PCS; principal; 2025-04-12 09:30)
DX: Z12.11 Encounter for screening for malignant neoplasm of colon (principal); K63.5 Polyp of colon; D12.4 Benign neoplasm of descending colon; D12.5 Benign neoplasm of sigmoid colon; R19.5 Other fecal abnormalities; J44.9 Chronic obstructive pulmonary disease, unspecified; I10 Essential (primary) hypertension; F32.A Depression, unspecified; E66.9 Obesity, unspecified; Z68.42 Body mass index [BMI] 45.0-49.9, adult; Z79.899 Other long term (current) drug therapy
CPT/HCPCS: 88305; J2405; J2704; J7120

== ENCOUNTER 2025-05-20 13:26 | Emergency (ER) | payer MEDICARE ==
[~2025-05-20] VITALS: Ht 152.4 cm; Wt 83.0 kg
[2025-05-20 14:22] LABS: BASOPHILS ABSOLUTE AUTO 0.02 K/mm3 (0.00-0.23); BASOPHILS PERCENT AUTO 0 % (0-2); EOSINOPHILS ABSOLUTE AUTO 0.01 K/mm3 (0.00-0.68); EOSINOPHILS PERCENT AUTO 0 % (0-6); Hematocrit 38.7 % (33.0-51.0); Hemoglobin 12.7 g/dL (11.5-16.0); IMMATURE GRAN ABSOLUTE AUTO 0.02 K/mm3 (0.00-0.10); IMMATURE GRAN PERCENT AUTO 0 % (0-1); LYMPHOCYTES ABSOLUTE AUTO 1.48 K/mm3 (0.84-5.20); LYMPHOCYTES PERCENT AUTO 21 % (21-46); MONOCYTES ABSOLUTE AUTO 0.67 K/mm3 (0.16-1.47); MONOCYTES PERCENT AUTO 9 % (4-13); Mean Corpuscular HGB Conc 32.8 g/dL (31.5-36.5); Mean Corpuscular Volume 92 fL (80-100); NEUTROPHILS ABSOLUTE AUTO 4.97 K/mm3 (1.96-9.15); NEUTROPHILS PERCENT AUTO 69 % (41-73); NRBC ABSOLUTE 0.00 K/mm3 (0.00-0.02); NRBC Auto 0.0 /100 WBC (0.0-0.2); Platelet Count 282 K/mm3 (150-400); RDW Coefficient Variation 12.1 % (11.7-14.2); RDW Standard Deviation 41.1 fL (35.1-46.3)
[2025-05-20 14:48] LABS: Alanine Aminotransfer (ALT/SGP 12.0 U/L (12-78); Albumin, Blood 3.4 g/dL (3.4-5.0); Albumin/Globulin Ratio 0.7 (0.8-1.8); Anion Gap 6.0 mmol/L (3-11); Aspartate Aminotrans (AST/SGOT 10.0 U/L (12-37); Bilirubin, Total 0.3 mg/dL (0.1-1.0); Blood Urea Nitrogen 17.0 mg/dL (8-24); CO2, Blood 35.0 mmol/L (21-32); Calcium, Blood 9.9 mg/dL (8.5-10.1); Chloride, Blood 98.0 mmol/L (98-108); Creatinine, Blood 0.87 mg/dL (0.40-1.00); Globulin, Blood 4.9 g/dL (2.2-4.0); Glucose, Blood 174.0 mg/dL (70-99); Potassium, Blood 3.2 mmol/L (3.5-5.5); Sodium, Blood 136.0 mmol/L (136-145); Total Protein, Blood 8.3 g/dL (6.4-8.2)
[2025-05-20] MEDS ORDERED: AMOCLA875 PO (18:11)
[2025-05-20] MEDS ORDERED: AZIT250 PO (18:11)
[2025-05-20 20:00] VITALS: BP 134/71
== END 2025-05-20 20:05 | disposition home or self-care (01) ==
LOC: ER 13:26
PROVIDERS: Physician Assistant
DX: R06.02 Shortness of breath (principal); R05.9 Cough, unspecified; Z87.09 Personal history of other diseases of the respiratory system; I12.9 Hypertensive chronic kidney disease with stage 1 through stage 4 chronic kidney disease, or unspecified chronic kidney disease; N18.9 Chronic kidney disease, unspecified; Z79.51 Long term (current) use of inhaled steroids; Z79.899 Other long term (current) drug therapy; Z88.5 Allergy status to narcotic agent; Z88.8 Allergy status to other drugs, medicaments and biological substances
CPT/HCPCS: 71046; 80053; 83880; 85025; 96361; 96374; 99285-25; A9270; J2919; J7120